=== PATIENT | female | born 1955 | race Caucasian/White ===

== ENCOUNTER → 2016-04-30 | Outpatient (CLI) | payer BC ==
[~2016-04-30] MED LIST: CEPH500C2 PO; GASTROZYME PO; MISCCAP80 PO; MULT-513 PO
[2016-04-30 14:08] LABS: ALT/SGPT 24 U/L (12-78); AST/SGOT 19 U/L (15-37); BLOOD UREA NITROGEN 14 mg/dl (7-18); BUN/CREATININE RATIO 19.2 (10-20); CALCIUM 9.3 mg/dl (8.5-10.1); CARBON DIOXIDE 29 mmol/L (21-32); CHLORIDE 106 mmol/L (98-107); CHOLESTEROL 205 mg/dl (0-200); CREATININE 0.75 mg/dl (0.60-1.20); GLUCOSE 88 mg/dl (70-99); POTASSIUM 4.2 mmol/L (3.5-5.1); SODIUM 144 mmol/L (136-145)
[2016-04-30 14:19] LABS: ALB/GLOB RATIO 1.3 (0.9-2); ALKALINE PHOSPHATASE 72 U/L (45-117); CHOLESTEROL/HDL RATIO 2.6; HDL CHOLESTEROL 79 mg/dl; TRIGLYCERIDES 69 mg/dl (0-150); VERY LOW DENSITY LIPOPROT CALC 14 mg/dl
[2016-04-30 14:23] LABS: BASO % 0.7 %; BASO ABS # 0.03 K/uL (0-0.2); COMPLETE YES; EOS % 3.4 %; HEMATOCRIT 38.6 % (37-47); IG% 0.2 %; LYMPH % 38.9 %; LYMPH ABS # 1.74 K/uL (1.2-3.4); MEAN CORPUSCULAR HEMOGLOBIN 31.6 pg (25-34); MEAN CORPUSCULAR HGB CONC 34.7 g/dl (32-36); MEAN PLATELET VOLUME 9.9 fL (7.4-10.4); MONO % 8.5 %; NEUT % 48.3 %; PLATELET COUNT 195 K/uL (130-400); RED BLOOD COUNT 4.24 M/uL (4.2-5.4); WHITE BLOOD COUNT 4.47 K/uL (4.8-10.8)
[2016-04-30 16:54] LABS: LYME DISEASE AB IGG NEG (NEG); LYME DISEASE AB IGM NEG (NEG)
[2016-05-05 20:17] LABS: AMOXICILLIN CLASS 0; AMOXICILLIN IGE <0.10 kU/L; AMPICILLIN CLASS 0; AMPICILLIN IGE <0.10 kU/L; PENICILLIN-G CLASS 0; PENICILLIN-G IGE <0.10 kU/L; PENICILLIN-V CLASS 0; PENICILLIN-V IGE <0.10 kU/L
== END | disposition home or self-care (01) ==
LOC: C.LABBC 10:10
PROVIDERS: ATTEND Family Medicine
DX: Z00.00 Encounter for general adult medical examination without abnormal findings (principal); T88.7XXA Unspecified adverse effect of drug or medicament, initial encounter; X58.XXXA Exposure to other specified factors, initial encounter

== ENCOUNTER → 2016-07-02 | Outpatient (CLI) | payer BC ==
--- NOTE | 2016-07-02 14:25 | MAMMOGRAPHY REPORT ---
ULTRASOUND OF BOTH BREASTS: 07/02/2016 CLINICAL HISTORY: The patient reports that her physician felt lumps in bilateral breasts during a cl inical exam. Per the patient, the physician was not worried about the lumps, especially given the sy mmetric nature. However, the patient desired ultrasound for further evaluation. She has a history of right breast atypia. COMPARISON: Comparison is made to exams dated: 08/24/2014 mammogram, 08/29/2015 mammogram - [facility], 08/19/2013 mammogram, 06/14/2012 mammogram, 06/12/2011 mammogram, and 06/10/2010 mamm ogram. TECHNIQUE: Real-time targeted ultrasound was performed of bilateral breasts. FINDINGS: Real-time, high-resolution targeted ultrasound was performed of the area of the palpable lump pointe d out by the patient. It is difficult for the patient to feel the lump today, however, she pointed to the general region of the lump in the left breast at 8:00, approximately 3 cm from the nipple. T argeted ultrasound of the region demonstrates no suspicious masses or other suspicious sonographic a bnormalities. A few incidentally noted small cysts were noted during the exam, including one anecho ic benign simple cyst measuring 3 mm and another anechoic benign cyst measuring 2 mm in the left geena ast at 9:00, 2 cm from the nipple. A round circumscribed anechoic mass with a few thin internal sep tations is seen within the left breast at 8:30, 2 cm from the nipple, measuring 3 x 3 mm. Targeted ultrasound was also performed of the right lower inner quadrant in the general region where the patient believes her physician felt lumps. No suspicious masses or other suspicious sonographi c abnormalities were evident. Incidentally noted in the right breast at 3:00, 3 cm from the nipple, is an oval anechoic circumscribed 3 x 2 mm mass with a few thin internal septations, consistent wit h a benign cyst. Bilateral mammograms were offered to the patient, given that the workup for lumps typically includes mammograms and ultrasound. However, the patient has radiation concerns because has had recent CT s cans and would prefer to wait until her screening mammogram is due in August. IMPRESSION: ACR BI-RADS CATEGORY 2: BENIGN No suspicious sonographic abnormalities at the site of the bilateral breast lumps pointed out by the patient, in bilateral lower inner quadrants. A few incidental small benign cysts were noted. There is no sonographic evidence of malignancy. Recommend clinical follow-up for bilateral breast lumps, and recommend routine bilateral screening m ammograms which are due August 2016. The patient was verbally notified of the results. Digna Peraza M.D. ah/:07/02/2016 11:47:11 Test And Turn Up Technician: Digna Peraza MD, [facility] letter sent: Normal 1/2 BI-RADS Code: ACR BI-RADS Category 2: Benign
== END | disposition home or self-care (01) ==
LOC: C.MAMM 11:08
PROVIDERS: ATTEND Obstetrics & Gynecology
DX: N63 Unspecified lump in breast (principal)

== ENCOUNTER → 2016-07-04 | Outpatient (CLI) | payer BC ==
[2016-07-06 16:28] LABS: MUMPS IgG VALUE 3.29
== END | disposition home or self-care (01) ==
LOC: C.LABBC 13:19
PROVIDERS: ATTEND Family Medicine
DX: Z00.00 Encounter for general adult medical examination without abnormal findings (principal)

== ENCOUNTER → 2016-07-07 | Outpatient (CLI) | payer BC | END | disposition home or self-care (01) | LOC: C.PAPS 16:14 | PROVIDERS: ATTEND Obstetrics & Gynecology | DX: Z01.419 Encounter for gynecological examination (general) (routine) without abnormal findings (principal) ==

== ENCOUNTER → 2016-09-03 | Outpatient (CLI) | payer BC ==
--- NOTE | 2016-09-04 13:06 | MAMMOGRAPHY REPORT ---
BILATERAL DIGITAL SCREENING MAMMOGRAM TOMOSYNTHESIS WITH CAD: 09/03/2016 CLINICAL HISTORY: Routine screening. Patient has no complaints. TECHNIQUE: Breast tomosynthesis in addition to standard 2D mammography was performed. Current study was also evaluated with a Computer Aided Detection (CAD) system. COMPARISON: Comparison is made to exams dated: 07/02/2016 ultrasound, 08/29/2015 mammogram - [facility], 08/24/2014 mammogram, 08/19/2013 mammogram, 06/14/2012 mammogram, and 06/12/2011 [facility]. BREAST COMPOSITION: The tissue of both breasts is heterogeneously dense, which may obscure small ma sses. FINDINGS: A linear scar marker overlies the upper outer quadrant of the right breast. An asymmetry in the middle one third of the right breast along the posterior nipple line on the MLO view appears very similar to the prior 06/10/2010 and 06/06/2009 mammograms, most likely normal overlapping tissu e. There is no definite persistent mass on the corresponding tomosynthesis images. Overall, no new suspicious mass, architectural distortion or cluster of microcalcifications is seen. IMPRESSION: ACR BI-RADS CATEGORY 1: NEGATIVE There is no mammographic evidence of malignancy. A 1 year screening mammogram is recommended. The p atient will receive written notification of the results. Approximately 10% of breast cancers are not detected with mammography. A negative mammographic repor t should not delay biopsy if a clinically suggestive mass is present. Zaira Jasso M.D. ay/:09/03/2016 16:30:13 Real Estate Salesperson: Ilan ALATORRE(R)(Remberto), [facility] letter sent: Normal 1/2 BI-RADS Code: ACR BI-RADS Category 1: Negative
== END | disposition home or self-care (01) ==
LOC: C.MAMM 11:38
PROVIDERS: ATTEND Obstetrics & Gynecology
DX: Z12.31 Encounter for screening mammogram for malignant neoplasm of breast (principal)

== ENCOUNTER → 2017-07-21 | Outpatient (CLI) | payer OTHER | END | disposition home or self-care (01) | LOC: C.PAPS 18:21 | PROVIDERS: ATTEND Obstetrics & Gynecology | DX: Z01.419 Encounter for gynecological examination (general) (routine) without abnormal findings (principal) ==

== ENCOUNTER → 2017-09-04 | Outpatient (CLI) | payer OTHER ==
--- NOTE | 2017-09-07 15:08 | MAMMOGRAPHY REPORT ---
BILATERAL DIGITAL SCREENING MAMMOGRAM TOMOSYNTHESIS WITH CAD: 09/04/2017 CLINICAL HISTORY: Routine screening. Patient has no complaints. TECHNIQUE: Breast tomosynthesis in addition to standard 2D mammography was performed. Current study was also evaluated with a Computer Aided Detection (CAD) system. COMPARISON: Comparison is made to exams dated: 09/03/2016 mammogram, 07/02/2016 ultrasound, 08/29/2015 mammogram - [facility], 08/24/2014 mammogram, 08/19/2013 mammogram, and 06/14/2012 mammo gram. BREAST COMPOSITION: The tissue of both breasts is heterogeneously dense, which may obscure small mas ses. FINDINGS: No suspicious masses, calcifications, or areas of architectural distortion are noted in ei ther breast. There has been no significant interval change compared to prior exams. There is stable postsurgical architectural distortion in the right upper outer quadrant, with a linear scar marker de noting a scar on the right upper outer breast. IMPRESSION: ACR BI-RADS CATEGORY 2: BENIGN There is no mammographic evidence of malignancy. A 1 year screening mammogram is recommended. The pa tient will receive written notification of the results. Approximately 10% of breast cancers are not detected with mammography. A negative mammographic report should not delay biopsy if a clinically suggestive mass is present. Digna Peraza M.D. /:09/04/2017 17:05:51 Breeding Technician: Maria R ALATORRE(R)(M), [facility] letter sent: Normal 1/2 BI-RADS Code: ACR BI-RADS Category 2: Benign
== END | disposition home or self-care (01) ==
LOC: C.MAMM 11:31
PROVIDERS: ATTEND Obstetrics & Gynecology
DX: Z12.31 Encounter for screening mammogram for malignant neoplasm of breast (principal)